=== PATIENT | female | born 1945 | race Caucasian/White ===

== ENCOUNTER 2023-12-27 12:01 | Inpatient (IN) | payer MEDICARE, OTHER ==
[~2023-12-27] VITALS: Ht 165.1 cm; Wt 69.9 kg
[2023-12-27 12:30] VITALS: TEMP 98.9
[2023-12-27 13:23] LABS: BASOPHILS # (AUTO) 0.1 (0.0-0.1); BASOPHILS % 0.6 % (0.0-1.0); EOSINOPHILS # (AUTO) 0.1 (0.0-0.4); EOSINOPHILS % 0.9 % (0.0-6.0); LYMPHOCYTES # (AUTO) 1.4 (1.0-3.2); LYMPHOCYTES % 10.5 % (18.0-39.1); MEAN CORPUSCULAR HGB CONC 31.7 g/dL (31-35); MEAN CORPUSCULAR VOLUME 126.3 fL (81-99); MONOCYTES # (AUTO) 1.6 (0.2-0.8); MONOCYTES % 11.8 % (4.4-11.3); NEUTROPHILS # (AUTO) 10.2 (2.1-6.9); PLATELET COUNT 396 x10e3/uL (140-360); RED CELL DISTRIBUTION WIDTH 15.4 % (11.7-14.4); WHITE BLOOD COUNT 13.59 x10e3/uL (4.8-10.8)
[2023-12-27 13:53] LABS: HEMATOCRIT 20.2 % (34.2-44.1); HEMOGLOBIN 6.4 g/dL (12.0-16.0)
[2023-12-27 14:18] LABS: CLARITY,URINE CLEAR (CLEAR); COLOR,URINE YELLOW (YELLOW); LEUKOCYTE ESTERASE ,URINE NEGATIVE (NEGATIVE); NITRITE,URINE NEGATIVE (NEGATIVE); PH,URINE 6 (5 - 7); PROTEIN,URINE DIPSTICK 1+ (NEGATIVE)
[2023-12-27 14:19] LABS: BILIRUBIN,URINE NEGATIVE (NEGATIVE); GLUCOSE, URINE NEGATIVE (NEGATIVE); KETONES,URINE NEGATIVE (NEGATIVE); URINE UROBILINOGEN 0.2 mg/dL (0.2 - 1)
[2023-12-27 14:22] LABS: ALBUMIN 3.3 g/dL (3.5-5.0); ALBUMIN/GLOBULIN RATIO 0.8 (0.8-2.0); ANION GAP 14.3 mmol/L (8-16); BILIRUBIN,TOTAL 1.2 mg/dL (0.2-1.2); CALCIUM 9.4 mg/dL (8.4-10.2); CREATININE, SERUM 1.19 mg/dL (0.57-1.11); POTASSIUM 4.3 mmol/L (3.5-5.1); TOTAL PROTEIN 7.7 g/dL (6.5-8.1)
[2023-12-27 14:25] LABS: INR 1.28; PARTIAL THROMBOPLASTIN TIME 25.5 seconds (23.8-35.5); PROTHROMBIN TIME 16.6 seconds (11.9-14.5)
[2023-12-27 14:37] LABS: EPITHELIAL CELLS,URINE MANY /LPF; WBC,URINE (MAN) 0-5 /HPF (0-5)
[2023-12-27 14:39] LABS: BACTERIA,URINE MODERATE /HPF; MUCUS,URINE FEW (RARE)
[2023-12-27] MEDS ORDERED: IOPAMIDOL 370 MG/ML 100 ML INFUS..BTL INJ ONE (15:15)
[2023-12-27] MEDS ORDERED: DEXAMETHASONE SOD PHOS INJ 4 MG/ML SDV ONE (15:23)
[2023-12-27] MEDS ORDERED: PROPOFOL IV EMULSION 10 MG/ML 20 ML VIAL ONE (15:23)
[2023-12-27] MEDS ORDERED: LIDOCAINE HCL 2% LOCAL INJ 5 ML SDV VIAL INJ ONE (15:23)
[2023-12-27] MEDS ORDERED: ONDANSETRON HCL INJ 2MG/ML 2ML 2 MG/ML VIAL ONE (15:23)
[2023-12-27] MEDS: SODIUM CHLORIDE 0.9% 1000ML 1,000 ML IV STA (15:37)
[2023-12-27] MEDS: ONDANSETRON HCL INJ 2MG/ML 2ML 2 MG/ML VIAL IV STA (15:52)
[2023-12-27] MEDS: Morphine 2mg Syringe 2 MG/ML SYR IV STA (15:53)
[2023-12-27 16:00] VITALS: PULSE 91; RESP 17
[2023-12-27] MEDS ORDERED: ONDANSETRON HCL INJ 2MG/ML 2ML 2 MG/ML VIAL IV PRN (17:00)
[2023-12-27 18:04] VITALS: BP 98/87; PULSE 92; RESP 21; TEMP 99.2; O2SAT 99
[2023-12-27] MEDS: SODIUM CHLORIDE 0.9% 250ML 250 ML IV ONE (18:36)
[2023-12-27] MEDS: SODIUM CHLORIDE 0.9% 1000ML 1,000 ML IV SCH (18:40)
[2023-12-27 19:50] VITALS: BP 108/60; PULSE 81; RESP 16; TEMP 98.1; O2SAT 100
[2023-12-27 20:00] VITALS: BP 108/60; PULSE 81; RESP 16; TEMP 98.1; O2SAT 100
[2023-12-27] MEDS ORDERED: FAMOTIDINE20 MG PO (20:15)
[2023-12-27] MEDS ORDERED: DOCUSATE SODIU100 MG PO (20:15)
[2023-12-27] MEDS ORDERED: LISINOPRIL5 MG PO (20:15)
[2023-12-27] MEDS ORDERED: LEVOTHYROXINE25 MCG PO (20:15)
[2023-12-27] MEDS ORDERED: OMEPRAZOLE40 MG PO (20:15)
[2023-12-27] MEDS: Morphine 2mg Syringe 2 MG/ML SYR IV PRN (20:41)
[2023-12-28] VITALS (8 sets, daily range): BP systolic 99–132; BP diastolic 51–76; PULSE 67–84; RESP 16–20; TEMP 97.6–98.9; O2SAT 96–99
[2023-12-28 06:14] LABS: ALBUMIN 2.8 g/dL (3.5-5.0); ALBUMIN/GLOBULIN RATIO 0.8 (0.8-2.0); ANION GAP 12.1 mmol/L (8-16); CALCIUM 8.6 mg/dL (8.4-10.2); CREATININE, SERUM 1.01 mg/dL (0.57-1.11); POTASSIUM 4.1 mmol/L (3.5-5.1); TOTAL PROTEIN 6.1 g/dL (6.5-8.1)
[2023-12-28 08:41] LABS: BASOPHILS # (AUTO) 0.1 (0.0-0.1); EOSINOPHILS # (AUTO) 0.2 (0.0-0.4); EOSINOPHILS % 1.8 % (0.0-6.0); HEMATOCRIT 27.8 % (34.2-44.1); HEMOGLOBIN 8.9 g/dL (12.0-16.0); LYMPHOCYTES # (AUTO) 2.3 (1.0-3.2); LYMPHOCYTES % 20.7 % (18.0-39.1); MEAN CORPUSCULAR HEMOGLOBIN 34.2 pg (28-32); MEAN CORPUSCULAR VOLUME 106.9 fL (81-99); MONOCYTES # (AUTO) 1.2 (0.2-0.8); MONOCYTES % 10.5 % (4.4-11.3); NEUTROPHILS # (AUTO) 7.4 (2.1-6.9); NEUTROPHILS % 64.9 % (38.7-80.0); PLATELET COUNT 263 x10e3/uL (140-360); RED CELL DISTRIBUTION WIDTH 24.3 % (11.7-14.4); WHITE BLOOD COUNT 11.31 x10e3/uL (4.8-10.8)
[2023-12-28] MEDS ORDERED: FENTANYL CITRATE/PF 100MCG/2 ML INJ ONE (14:45)
[2023-12-28 21:42] LABS: CLARITY,URINE SL CLOUDY (CLEAR); COLOR,URINE YELLOW (YELLOW); LEUKOCYTE ESTERASE ,URINE TRACE (NEGATIVE); NITRITE,URINE NEGATIVE (NEGATIVE); PH,URINE 6 (5 - 7)
[2023-12-28 21:43] LABS: BILIRUBIN,URINE NEGATIVE (NEGATIVE); GLUCOSE, URINE NEGATIVE (NEGATIVE); KETONES,URINE NEGATIVE (NEGATIVE); PROTEIN,URINE DIPSTICK 2+ (NEGATIVE); URINE UROBILINOGEN 0.2 mg/dL (0.2 - 1)
[2023-12-28 21:45] LABS: BACTERIA,URINE RARE /HPF; EPITHELIAL CELLS,URINE FEW /LPF
[2023-12-29] VITALS (8 sets, daily range): BP systolic 118–137; BP diastolic 61–73; PULSE 54–70; RESP 18–21; TEMP 97.6–98.5; O2SAT 95–100
[2023-12-29] MEDS ORDERED: IOPAMIDOL 610MG/1ML 300 MG/ML VIAL IV ONE (06:40)
[2023-12-29] MEDS ORDERED: PHENAZOPYRIDINE HCL 100 MG TAB PO PRN (08:00)
[2023-12-29 09:08] LABS: BASOPHILS # (AUTO) 0.1 (0.0-0.1); BASOPHILS % 1.1 % (0.0-1.0); EOSINOPHILS # (AUTO) 0.3 (0.0-0.4); EOSINOPHILS % 2.7 % (0.0-6.0); HEMATOCRIT 32.2 % (34.2-44.1); HEMOGLOBIN 10.3 g/dL (12.0-16.0); LYMPHOCYTES # (AUTO) 1.6 (1.0-3.2); LYMPHOCYTES % 13.3 % (18.0-39.1); MEAN CORPUSCULAR HEMOGLOBIN 34.2 pg (28-32); MONOCYTES # (AUTO) 0.5 (0.2-0.8); MONOCYTES % 4.4 % (4.4-11.3); NEUTROPHILS # (AUTO) 9.2 (2.1-6.9); NEUTROPHILS % 76.5 % (38.7-80.0); PLATELET COUNT 275 x10e3/uL (140-360); RED BLOOD COUNT 3.01 x10e6/uL (3.6-5.1); RED CELL DISTRIBUTION WIDTH 23.3 % (11.7-14.4)
[2023-12-29 09:25] LABS: ANION GAP 14.1 mmol/L (8-16); CALCIUM 8.8 mg/dL (8.4-10.2); CREATININE, SERUM 0.87 mg/dL (0.57-1.11); POTASSIUM 4.1 mmol/L (3.5-5.1); URIC ACID 6.8 mg/dL (2.6-8.0)
[2023-12-29] MEDS: SOLIFENACIN SUCCINATE 5 MG TAB PO SCH (09:40)
[2023-12-30] VITALS (8 sets, daily range): BP systolic 124–139; BP diastolic 54–78; PULSE 53–59; RESP 17–21; TEMP 97.6–98.6; O2SAT 97–100
[2023-12-30 07:52] LABS: MAGNESIUM 1.9 MG/DL (1.3-2.1)
[2023-12-30 08:12] LABS: THYROID STIMULATING HORMONE 1.488 uIU/mL (0.350-4.940)
[2023-12-30 10:55] LABS: BASOPHILS # (AUTO) 0.1 (0.0-0.1); EOSINOPHILS % 0.3 % (0.0-6.0); HEMATOCRIT 30.7 % (34.2-44.1); HEMOGLOBIN 9.5 g/dL (12.0-16.0); LYMPHOCYTES # (AUTO) 2.3 (1.0-3.2); LYMPHOCYTES % 24.6 % (18.0-39.1); MEAN CORPUSCULAR HEMOGLOBIN 34.1 pg (28-32); MEAN CORPUSCULAR HGB CONC 30.9 g/dL (31-35); MONOCYTES # (AUTO) 0.8 (0.2-0.8); MONOCYTES % 8.5 % (4.4-11.3); NEUTROPHILS # (AUTO) 6.1 (2.1-6.9); PLATELET COUNT 264 x10e3/uL (140-360); RED BLOOD COUNT 2.79 x10e6/uL (3.6-5.1); RED CELL DISTRIBUTION WIDTH 21.5 % (11.7-14.4); WHITE BLOOD COUNT 9.46 x10e3/uL (4.8-10.8)
[2023-12-30 11:07] LABS: ANION GAP 14.6 mmol/L (8-16); CALCIUM 8.5 mg/dL (8.4-10.2); CREATININE, SERUM 0.79 mg/dL (0.57-1.11); POTASSIUM 4.6 mmol/L (3.5-5.1)
[2023-12-31] VITALS: BP 153/63; PULSE 74; RESP 18; TEMP 98.6; O2SAT 97
[2023-12-31 04:00] VITALS: BP 123/56; PULSE 58; RESP 18; TEMP 98.2; O2SAT 99
[2023-12-31 05:46] LABS: CHOL/HDL RATIO 2.6 (3.0-3.6)
[2023-12-31 08:00] VITALS: BP 138/62; PULSE 54; RESP 20; TEMP 98.4; O2SAT 98
[2023-12-31 12:00] VITALS: BP 127/77; PULSE 57; RESP 22; TEMP 98.1; O2SAT 99
[2023-12-31] MEDS ORDERED: REGADENOSON 0.4 MG/5 ML SYR IV ONE (13:05)
[2023-12-31 16:00] VITALS: BP 142/76; PULSE 65; RESP 20; TEMP 98.4; O2SAT 100
[2023-12-31 20:00] VITALS: BP_SYST 125; BP_SYST 138; BP_DIAS 62; PULSE 54; PULSE 58; RESP 16; RESP 20; TEMP 97.7; TEMP 98.4; O2SAT 100; O2SAT 98
[2024-01-01] VITALS: BP 124/66; PULSE 70; RESP 18; TEMP 97.9; O2SAT 98
[2024-01-01 05:55] VITALS: BP 119/66; PULSE 56; RESP 16; TEMP 98.2; O2SAT 98
[2024-01-01 08:00] VITALS: BP 133/61; PULSE 63; RESP 21; TEMP 98.1; O2SAT 98
[2024-01-01 09:16] LABS: CALCIUM 8.3 mg/dL (8.7-10.3)
[2024-01-01 12:00] VITALS: BP 135/55; PULSE 64; RESP 20; TEMP 98.3; O2SAT 99
[2024-01-01] MEDS ORDERED: VESICARE5 MG PO (14:00)
== END 2024-01-01 15:23 | disposition home or self-care (01) | DRG 660 ==
LOC: ER 12:36 → ERHOLD 16:52 → MED/SURG 18:04
PROVIDERS: ADMIT Internal Medicine; ATTEND Internal Medicine
PROC: 30233N1 Transfusion of Nonautologous Red Blood Cells into Peripheral Vein, Percutaneous Approach (ICD-10-PCS; principal; 2023-12-27)
PROC: 0TC78ZZ Extirpation of Matter from Left Ureter, Via Natural or Artificial Opening Endoscopic (ICD-10-PCS; 2023-12-29)
PROC: BT161ZZ Fluoroscopy of Right Ureter using Low Osmolar Contrast (ICD-10-PCS; 2023-12-29)
PROC: BT171ZZ Fluoroscopy of Left Ureter using Low Osmolar Contrast (ICD-10-PCS; 2023-12-29)
PROC: 0UJH7ZZ Inspection of Vagina and Cul-de-sac, Via Natural or Artificial Opening (ICD-10-PCS; 2023-12-29)
PROC: 0T778DZ Dilation of Left Ureter with Intraluminal Device, Via Natural or Artificial Opening Endoscopic (ICD-10-PCS; 2023-12-29 07:27)
DX: N13.2 Hydronephrosis with renal and ureteral calculous obstruction (principal); I47.29 Other ventricular tachycardia; N13.1 Hydronephrosis with ureteral stricture, not elsewhere classified; N17.9 Acute kidney failure, unspecified; I10 Essential (primary) hypertension; D64.9 Anemia, unspecified; I20.89 Other forms of angina pectoris; N23 Unspecified renal colic; R31.29 Other microscopic hematuria; D25.9 Leiomyoma of uterus, unspecified; R91.1 Solitary pulmonary nodule; D75.839 Thrombocytosis, unspecified; R73.9 Hyperglycemia, unspecified; K80.20 Calculus of gallbladder without cholecystitis without obstruction; E86.0 Dehydration; K59.00 Constipation, unspecified; N81.4 Uterovaginal prolapse, unspecified; N95.2 Postmenopausal atrophic vaginitis; R32 Unspecified urinary incontinence; Z87.440 Personal history of urinary (tract) infections; Z96.0 Presence of urogenital implants; Z82.49 Family history of ischemic heart disease and other diseases of the circulatory system
CPT/HCPCS: 36415; 71046; 74177; 74420; 78452; 80048; 80053; 80061; 81001; 83036; 83735; 83880; 83970; 84443; 84484; 84550; 85025; 85610; 85730; 86850; 86900; 86920; 87086; 88300; 93005; 93017; 93306; 99284; A9502; C1758; C2617; J0696; J1100; J2003; J2270; J2405; J2470; J7030; J7050; P9016; Q9967

== ENCOUNTER 2024-03-12 09:22 | Inpatient (IN) | payer MEDICARE ==
[2024-03-11 15:50] LABS: BASOPHILS # (AUTO) 0.1 (0.0-0.1); EOSINOPHILS # (AUTO) 0.1 (0.0-0.4); EOSINOPHILS % 1.8 % (0.0-6.0); LYMPHOCYTES # (AUTO) 2.3 (1.0-3.2); MEAN CORPUSCULAR HEMOGLOBIN 34.9 pg (28-32); MEAN CORPUSCULAR HGB CONC 30.2 g/dL (31-35); MEAN CORPUSCULAR VOLUME 115.7 fL (81-99); MONOCYTES # (AUTO) 0.8 (0.2-0.8); MONOCYTES % 11.5 % (4.4-11.3); NEUTROPHILS # (AUTO) 3.8 (2.1-6.9); NEUTROPHILS % 51.5 % (38.7-80.0); PLATELET COUNT 290 x10e3/uL (140-360); RED BLOOD COUNT 1.72 x10e6/uL (3.6-5.1); RED CELL DISTRIBUTION WIDTH 24.1 % (11.7-14.4); WHITE BLOOD COUNT 7.32 x10e3/uL (4.8-10.8)
[2024-03-11 16:01] LABS: HEMATOCRIT 19.9 % (34.2-44.1)
[2024-03-11 16:10] LABS: ANION GAP 16.3 mmol/L (8-16); CALCIUM 9.4 mg/dL (8.4-10.2); CREATININE, SERUM 0.98 mg/dL (0.57-1.11); POTASSIUM 4.3 mmol/L (3.5-5.1)
[~2024-03-12] VITALS: Ht 154.9 cm; Wt 67.6 kg
[~2024-03-12 09:22] MED LIST: DOCUSATE SODIU100 MG PO; FAMOTIDINE20 MG PO; LEVOTHYROXINE25 MCG PO; LISINOPRIL5 MG PO; OMEPRAZOLE40 MG PO; VESICARE5 MG PO
[2024-03-12] MEDS: LACTATED RINGER'S 1,000 ML ONE (09:53)
[2024-03-12] MEDS: GENTAMICIN 80MG/NS 100 ML 200 ML IV ONE (09:54)
[2024-03-12] MEDS: CEFTRIAXONE 1 GM VIAL ONE (09:54)
[2024-03-12 10:05] LABS: BASOPHILS % 0.7 % (0.0-1.0); EOSINOPHILS # (AUTO) 0.1 (0.0-0.4); LYMPHOCYTES # (AUTO) 1.6 (1.0-3.2); LYMPHOCYTES % 28.6 % (18.0-39.1); MEAN CORPUSCULAR HEMOGLOBIN 35.5 pg (28-32); MEAN CORPUSCULAR HGB CONC 30.5 g/dL (31-35); MEAN CORPUSCULAR VOLUME 116.4 fL (81-99); MONOCYTES # (AUTO) 0.8 (0.2-0.8); MONOCYTES % 14.8 % (4.4-11.3); NEUTROPHILS # (AUTO) 2.9 (2.1-6.9); NEUTROPHILS % 52.1 % (38.7-80.0); PLATELET COUNT 249 x10e3/uL (140-360); RED BLOOD COUNT 1.52 x10e6/uL (3.6-5.1); RED CELL DISTRIBUTION WIDTH 23.9 % (11.7-14.4)
[2024-03-12 10:11] LABS: HEMATOCRIT 17.7 % (34.2-44.1)
[2024-03-12 10:15] LABS: HEMOGLOBIN 5.4 g/dL (12.0-16.0)
[2024-03-12] MEDS: SODIUM CHLORIDE 0.9% 500ML 500 ML ONE (11:44)
[2024-03-12] MEDS ORDERED: SEVOFLURANE INHAL SOLN 250 ML PEN BTL ONE (13:30)
[2024-03-12] MEDS ORDERED: ACETAMINOPHEN 1000 MG/100 ML 0 ML IV ONE (13:30)
[2024-03-12] MEDS ORDERED: PROPOFOL IV EMULSION 10 MG/ML 20 ML VIAL ONE (13:30)
[2024-03-12] MEDS ORDERED: FENTANYL CITRATE/PF 100MCG/2 ML INJ ONE (13:30)
[2024-03-12] MEDS ORDERED: DEXAMETHASONE SOD PHOS INJ 4 MG/ML SDV ONE (13:30)
[2024-03-12] MEDS ORDERED: LIDOCAINE HCL 2% LOCAL INJ 5 ML SDV VIAL INJ ONE (13:30)
[2024-03-12] MEDS ORDERED: ONDANSETRON HCL INJ 2MG/ML 2ML 2 MG/ML VIAL ONE (13:32)
[2024-03-12] MEDS ORDERED: ACETAMINOPHEN 1000 MG/100 ML IV PRN (14:45)
[2024-03-12] MEDS ORDERED: ACETAMINOPHEN/CODEINE 300MG - 30MG TAB PO PRN (14:45)
[2024-03-12] MEDS ORDERED: PHENAZOPYRIDINE HCL 100 MG TAB PO PRN (14:45)
[2024-03-12] MEDS ORDERED: DIPHENHYDRAMINE HCL 25 MG CAP PO PRN (14:45)
[2024-03-12 15:11] LABS: BASOPHILS # (AUTO) 0.1 (0.0-0.1); BASOPHILS % 0.8 % (0.0-1.0); EOSINOPHILS # (AUTO) 0.1 (0.0-0.4); EOSINOPHILS % 1.6 % (0.0-6.0); HEMOGLOBIN 8.4 g/dL (12.0-16.0); LYMPHOCYTES # (AUTO) 2.6 (1.0-3.2); LYMPHOCYTES % 31.7 % (18.0-39.1); MEAN CORPUSCULAR HEMOGLOBIN 32.3 pg (28-32); MEAN CORPUSCULAR HGB CONC 31.1 g/dL (31-35); MEAN CORPUSCULAR VOLUME 103.8 fL (81-99); MONOCYTES # (AUTO) 0.8 (0.2-0.8); MONOCYTES % 9.7 % (4.4-11.3); NEUTROPHILS # (AUTO) 4.5 (2.1-6.9); NEUTROPHILS % 54.6 % (38.7-80.0); PLATELET COUNT 185 x10e3/uL (140-360); RED CELL DISTRIBUTION WIDTH 23.7 % (11.7-14.4); WHITE BLOOD COUNT 8.26 x10e3/uL (4.8-10.8)
[2024-03-12 15:40] LABS: ANION GAP 16.1 mmol/L (8-16); CALCIUM 8.8 mg/dL (8.4-10.2); CREATININE, SERUM 0.8 mg/dL (0.57-1.11); POTASSIUM 4.1 mmol/L (3.5-5.1)
[2024-03-12 16:21] VITALS: BP 105/68; PULSE 65; RESP 20; TEMP 97.7; O2SAT 100
[2024-03-12 16:30] VITALS: PULSE 63; RESP 18; O2SAT 98
[2024-03-12 16:32] VITALS: BP 105/68; PULSE 65; RESP 20; TEMP 97.7; O2SAT 100
[2024-03-12] MEDS ORDERED: SENNA-S TABLET PO SCH (17:00)
[2024-03-12] MEDS: SODIUM CHLORIDE 0.9% 1000ML 1,000 ML IV SCH (18:31)
[2024-03-12 20:00] VITALS: BP 132/75; PULSE 104; RESP 18; TEMP 101.5; O2SAT 99
[2024-03-12 20:35] VITALS: PULSE 91; RESP 18; O2SAT 98
[2024-03-12] MEDS: SENNA-S TABLET PO SCH (21:08)
[2024-03-13] VITALS (9 sets, daily range): BP systolic 108–120; BP diastolic 52–67; PULSE 87–103; RESP 18–20; TEMP 98.7–100.5; O2SAT 93–100
[2024-03-13 05:26] LABS: BASOPHILS # (AUTO) 0.1 (0.0-0.1); BASOPHILS % 0.8 % (0.0-1.0); EOSINOPHILS % 0.1 % (0.0-6.0); HEMATOCRIT 22.2 % (34.2-44.1); LYMPHOCYTES # (AUTO) 0.4 (1.0-3.2); LYMPHOCYTES % 2.2 % (18.0-39.1); MEAN CORPUSCULAR HEMOGLOBIN 32.9 pg (28-32); MEAN CORPUSCULAR HGB CONC 32.9 g/dL (31-35); MONOCYTES % 5.8 % (4.4-11.3); NEUTROPHILS # (AUTO) 15.3 (2.1-6.9); NEUTROPHILS % 88.4 % (38.7-80.0); PLATELET COUNT 199 x10e3/uL (140-360); RED BLOOD COUNT 2.22 x10e6/uL (3.6-5.1); RED CELL DISTRIBUTION WIDTH 24.2 % (11.7-14.4); WHITE BLOOD COUNT 17.33 x10e3/uL (4.8-10.8)
[2024-03-13 05:36] LABS: HEMOGLOBIN 7.3 g/dL (12.0-16.0)
[2024-03-13 05:50] LABS: ANION GAP 14.2 mmol/L (8-16); CALCIUM 8.5 mg/dL (8.4-10.2); CREATININE, SERUM 0.88 mg/dL (0.57-1.11); POTASSIUM 4.2 mmol/L (3.5-5.1)
[2024-03-13 10:47] LABS: ANISOCYTOSIS MODERATE; PLATELET ESTIMATE ADEQUATE; PLATELET MORPHOLOGY COMMENT FEW LARGE; RBC MORPHOLOGY COMMENT ABNORMAL
[2024-03-13 14:41] LABS: FOLATE 5.6 ng/mL (7.0-15.4)
[2024-03-13 15:05] LABS: FERRITIN 1859.16 ng/mL (4.63-204.00)
[2024-03-14] VITALS (12 sets, daily range): BP systolic 103–135; BP diastolic 53–64; PULSE 78–96; RESP 16–20; TEMP 98.2–100.1; O2SAT 95–100
[2024-03-14 05:12] LABS: BASOPHILS % 0.7 % (0.0-1.0); EOSINOPHILS % 0.2 % (0.0-6.0); HEMATOCRIT 21.8 % (34.2-44.1); LYMPHOCYTES # (AUTO) 1.2 (1.0-3.2); LYMPHOCYTES % 20.5 % (18.0-39.1); MEAN CORPUSCULAR HEMOGLOBIN 32.4 pg (28-32); MEAN CORPUSCULAR HGB CONC 30.7 g/dL (31-35); MONOCYTES # (AUTO) 0.4 (0.2-0.8); MONOCYTES % 7.1 % (4.4-11.3); NEUTROPHILS % 69.6 % (38.7-80.0); RED BLOOD COUNT 2.07 x10e6/uL (3.6-5.1); RED CELL DISTRIBUTION WIDTH 23.3 % (11.7-14.4)
[2024-03-14 05:26] LABS: HEMOGLOBIN 6.7 g/dL (12.0-16.0)
[2024-03-14 05:27] LABS: MEAN CORPUSCULAR VOLUME 105.3 fL (81-99); PLATELET COUNT 130 x10e3/uL (140-360)
[2024-03-14 05:39] LABS: ANION GAP 11.8 mmol/L (8-16); CALCIUM 7.9 mg/dL (8.4-10.2); CREATININE, SERUM 0.78 mg/dL (0.57-1.11); POTASSIUM 3.8 mmol/L (3.5-5.1)
[2024-03-14] MEDS ORDERED: FUROSEMIDE 20 MG TAB PO PRN (08:45)
[2024-03-14] MEDS: SODIUM CHLORIDE 0.9% 250ML 250 ML IV ONE (09:37)
[2024-03-14] MEDS: FUROSEMIDE INJ 10 MG/ML 4 ML VIAL IV PRN (14:41)
[2024-03-14] MEDS ORDERED: IRON SUCROSE 100 MG in SODIUM CHLORIDE 0.9% 100 ML IV SCH (15:00)
[2024-03-14] MEDS: CYANOCOBALAMIN INJ 1,000 MCG/ML VIAL IM ONE (16:35)
[2024-03-14] MEDS: FOLIC ACID 1 MG TAB PO ONE (16:35)
[2024-03-14] MEDS: IRON SUCROSE 100 MG in SODIUM CHLORIDE 0.9% 100 ML IV SCH (20:59)
[2024-03-15] VITALS (10 sets, daily range): BP systolic 108–126; BP diastolic 63–71; PULSE 65–87; RESP 16–21; TEMP 97.2–98.5; O2SAT 95–100
[2024-03-15 05:57] LABS: BASOPHILS % 0.6 % (0.0-1.0); EOSINOPHILS # (AUTO) 0.1 (0.0-0.4); EOSINOPHILS % 2.2 % (0.0-6.0); HEMATOCRIT 33.7 % (34.2-44.1); HEMOGLOBIN 10.9 g/dL (12.0-16.0); LYMPHOCYTES # (AUTO) 1.5 (1.0-3.2); LYMPHOCYTES % 23.5 % (18.0-39.1); MEAN CORPUSCULAR HEMOGLOBIN 31.3 pg (28-32); MEAN CORPUSCULAR HGB CONC 32.3 g/dL (31-35); MEAN CORPUSCULAR VOLUME 96.8 fL (81-99); MONOCYTES # (AUTO) 0.5 (0.2-0.8); MONOCYTES % 8.1 % (4.4-11.3); NEUTROPHILS % 64.2 % (38.7-80.0); PLATELET COUNT 125 x10e3/uL (140-360); RED BLOOD COUNT 3.48 x10e6/uL (3.6-5.1); RED CELL DISTRIBUTION WIDTH 20.5 % (11.7-14.4); WHITE BLOOD COUNT 6.26 x10e3/uL (4.8-10.8)
[2024-03-15 06:10] LABS: INR 1.19; PROTHROMBIN TIME 15.8 seconds (11.9-14.5)
[2024-03-15 06:24] LABS: ALBUMIN 2.7 g/dL (3.5-5.0); ALBUMIN/GLOBULIN RATIO 0.7 (0.8-2.0); ANION GAP 14.5 mmol/L (8-16); CALCIUM 8.3 mg/dL (8.4-10.2); CREATININE, SERUM 0.91 mg/dL (0.57-1.11); POTASSIUM 3.5 mmol/L (3.5-5.1); TOTAL PROTEIN 6.6 g/dL (6.5-8.1)
[2024-03-15] MEDS ORDERED: FOLIC ACID 1 MG TAB PO SCH (09:00)
[2024-03-15] MEDS ORDERED: CYANOCOBALAMIN 1,000 MCG TAB PO SCH (09:00)
[2024-03-15] MEDS: CYANOCOBALAMIN INJ 1,000 MCG/ML VIAL IM SCH (10:26)
[2024-03-15] MEDS: FOLIC ACID 1 MG TAB PO SCH (10:26)
[2024-03-16] VITALS (7 sets, daily range): BP systolic 117–139; BP diastolic 66–75; PULSE 55–80; RESP 16–20; TEMP 97.2–98; O2SAT 97–99
[2024-03-16 06:03] LABS: BASOPHILS % 0.7 % (0.0-1.0); EOSINOPHILS # (AUTO) 0.2 (0.0-0.4); EOSINOPHILS % 3.2 % (0.0-6.0); HEMATOCRIT 32.1 % (34.2-44.1); HEMOGLOBIN 10.7 g/dL (12.0-16.0); LYMPHOCYTES # (AUTO) 1.5 (1.0-3.2); LYMPHOCYTES % 25.7 % (18.0-39.1); MEAN CORPUSCULAR HEMOGLOBIN 31.4 pg (28-32); MEAN CORPUSCULAR HGB CONC 33.3 g/dL (31-35); MEAN CORPUSCULAR VOLUME 94.1 fL (81-99); MONOCYTES # (AUTO) 0.4 (0.2-0.8); MONOCYTES % 6.3 % (4.4-11.3); NEUTROPHILS # (AUTO) 3.5 (2.1-6.9); PLATELET COUNT 117 x10e3/uL (140-360); RED BLOOD COUNT 3.41 x10e6/uL (3.6-5.1); RED CELL DISTRIBUTION WIDTH 20.4 % (11.7-14.4); WHITE BLOOD COUNT 5.67 x10e3/uL (4.8-10.8)
[2024-03-16 06:30] LABS: ANION GAP 13.6 mmol/L (8-16); CALCIUM 8.5 mg/dL (8.4-10.2); CREATININE, SERUM 0.74 mg/dL (0.57-1.11); POTASSIUM 3.6 mmol/L (3.5-5.1)
[2024-03-16] MEDS ORDERED: SENOKOT-S TABL1 EACH PO (13:16)
[2024-03-17 07:32] LABS: HEPATITIS A ANTIBODY IGM (P) Negative; HEPATITIS B CORE IGM (P) Negative; HEPATITIS B SURFACE AG (P) Negative
[2024-03-17 07:33] LABS: HEPATITIS C ANTIBODY Non Reactive
== END 2024-03-16 15:39 | disposition home or self-care (01) | DRG 694 ==
LOC: OR 09:22 → PACU V 14:43 → MED/SURG 16:11
PROVIDERS: ADMIT Internal Medicine; ATTEND Internal Medicine
PROC: 0TC08ZZ Extirpation of Matter from Right Kidney, Via Natural or Artificial Opening Endoscopic (ICD-10-PCS; 2024-03-12)
PROC: BT141ZZ Fluoroscopy of Kidneys, Ureters and Bladder using Low Osmolar Contrast (ICD-10-PCS; 2024-03-12)
PROC: 0UJH7ZZ Inspection of Vagina and Cul-de-sac, Via Natural or Artificial Opening (ICD-10-PCS; 2024-03-12)
PROC: 30233N1 Transfusion of Nonautologous Red Blood Cells into Peripheral Vein, Percutaneous Approach (ICD-10-PCS; 2024-03-12)
PROC: 0TP98DZ Removal of Intraluminal Device from Ureter, Via Natural or Artificial Opening Endoscopic (ICD-10-PCS; principal; 2024-03-12 14:05)
PROC: 0TC68ZZ Extirpation of Matter from Right Ureter, Via Natural or Artificial Opening Endoscopic (ICD-10-PCS; 2024-03-12 14:05)
DX: N13.2 Hydronephrosis with renal and ureteral calculous obstruction (principal); D62 Acute posthemorrhagic anemia; D69.6 Thrombocytopenia, unspecified; I10 Essential (primary) hypertension; K21.9 Gastro-esophageal reflux disease without esophagitis; D72.829 Elevated white blood cell count, unspecified; N81.2 Incomplete uterovaginal prolapse; N36.41 Hypermobility of urethra; D25.9 Leiomyoma of uterus, unspecified; R91.1 Solitary pulmonary nodule
CPT/HCPCS: 36415; 71046; 74018; 74420; 76700; 80048; 80053; 82607; 82728; 82746; 83010; 83540; 83615; 83735; 84466; 84550; 85025; 85045; 85379; 85384; 85610; 86850; 86900; 86920; 87086; 88300; 93005; 93970; 94799; C1758; C1769; J0696; J1100; J1580; J1756; J1940; J2003; J2405; J2470; J3420; J7030; J7040; J7050; P9016

== ENCOUNTER 2024-06-07 11:08 | Inpatient (IN) | payer MEDICARE ==
[2024-06-07] VITALS (9 sets, daily range): BP systolic 101–121; BP diastolic 55–84; PULSE 65–87; RESP 16–19; TEMP 97.4–98.2; O2SAT 99–100
[~2024-06-07] VITALS: Ht 165.1 cm; Wt 69.9 kg
[~2024-06-07 11:08] MED LIST changes: +SENOKOT-S TABL1 EACH PO
[2024-06-07 12:50] LABS: BASOPHILS # (AUTO) 0.1 (0.0-0.1); BASOPHILS % 0.9 % (0.0-1.0); EOSINOPHILS # (AUTO) 0.1 (0.0-0.4); EOSINOPHILS % 2.4 % (0.0-6.0); LYMPHOCYTES # (AUTO) 1.5 (1.0-3.2); LYMPHOCYTES % 26.4 % (18.0-39.1); MEAN CORPUSCULAR HEMOGLOBIN 35.8 pg (28-32); MEAN CORPUSCULAR HGB CONC 31.6 g/dL (31-35); MEAN CORPUSCULAR VOLUME 113.3 fL (81-99); MONOCYTES # (AUTO) 0.6 (0.2-0.8); MONOCYTES % 10.9 % (4.4-11.3); NEUTROPHILS # (AUTO) 3.2 (2.1-6.9); NEUTROPHILS % 58.3 % (38.7-80.0); PLATELET COUNT 166 x10e3/uL (140-360); RED BLOOD COUNT 1.65 x10e6/uL (3.6-5.1); WHITE BLOOD COUNT 5.52 x10e3/uL (4.8-10.8)
[2024-06-07 13:01] LABS: HEMATOCRIT 18.7 % (34.2-44.1); HEMOGLOBIN 5.9 g/dL (12.0-16.0)
[2024-06-07 13:02] LABS: ALBUMIN 3.6 g/dL (3.5-5.0); ALBUMIN/GLOBULIN RATIO 0.9 (0.8-2.0); ANION GAP 16.7 mmol/L (8-16); CALCIUM 8.9 mg/dL (8.4-10.2); CREATININE, SERUM 0.81 mg/dL (0.57-1.11); POTASSIUM 3.7 mmol/L (3.5-5.1); TOTAL PROTEIN 7.5 g/dL (6.5-8.1)
[2024-06-07 15:14] LABS: ANISOCYTOSIS SLIGHT; HYPOCHROMASIA SLIGHT; PLATELET ESTIMATE ADEQUATE; PLATELET MORPHOLOGY COMMENT NORMAL; POIKILOCYTOSIS SLIGHT
[2024-06-07 15:15] LABS: CRENATED RBC SLIGHT; RBC MORPHOLOGY COMMENT ABNORMAL
[2024-06-07] MEDS ORDERED: PNEUMOCOCCAL VACCINE POLYVALENT 23 MCG/0.5 ML VIAL IM SCH (15:20)
[2024-06-07] MEDS: SODIUM CHLORIDE 0.9% 250ML 250 ML IV ONE (16:37)
[2024-06-08] VITALS (7 sets, daily range): BP systolic 98–121; BP diastolic 46–73; PULSE 61–73; RESP 17–20; TEMP 97–98.4; O2SAT 98–100
[2024-06-08 04:34] LABS: FERRITIN 1489.8 ng/mL (4.63-204.00)
[2024-06-08 05:37] LABS: BASOPHILS % 0.7 % (0.0-1.0); EOSINOPHILS # (AUTO) 0.2 (0.0-0.4); EOSINOPHILS % 3.5 % (0.0-6.0); HEMATOCRIT 24.1 % (34.2-44.1); HEMOGLOBIN 8.1 g/dL (12.0-16.0); LYMPHOCYTES % 34.3 % (18.0-39.1); MEAN CORPUSCULAR HEMOGLOBIN 32.7 pg (28-32); MEAN CORPUSCULAR HGB CONC 33.6 g/dL (31-35); MEAN CORPUSCULAR VOLUME 97.2 fL (81-99); MONOCYTES # (AUTO) 0.6 (0.2-0.8); MONOCYTES % 11.2 % (4.4-11.3); NEUTROPHILS # (AUTO) 2.9 (2.1-6.9); NEUTROPHILS % 49.8 % (38.7-80.0); PLATELET COUNT 157 x10e3/uL (140-360); RED BLOOD COUNT 2.48 x10e6/uL (3.6-5.1); RED CELL DISTRIBUTION WIDTH 26.5 % (11.7-14.4); WHITE BLOOD COUNT 5.72 x10e3/uL (4.8-10.8)
[2024-06-08 06:04] LABS: CALCIUM 8.3 mg/dL (8.4-10.2); CREATININE, SERUM 0.77 mg/dL (0.57-1.11)
[2024-06-08] MEDS: LEVOTHYROXINE SODIUM 25 MCG TABLET PO SCH (06:35)
[2024-06-08] MEDS: LISINOPRIL 2.5 MG TAB PO SCH (09:00)
[2024-06-08] MEDS: SODIUM CHLORIDE 0.9% 250ML 250 ML IV ONE (09:01)
[2024-06-08] MEDS: DOCUSATE SODIUM 100 MG CAP PO SCH (09:21)
[2024-06-09 04:00] VITALS: BP 126/62; PULSE 61; RESP 18; TEMP 97.8; O2SAT 100
[2024-06-09 05:40] LABS: BASOPHILS % 0.8 % (0.0-1.0); EOSINOPHILS # (AUTO) 0.2 (0.0-0.4); HEMATOCRIT 25.3 % (34.2-44.1); HEMOGLOBIN 8.4 g/dL (12.0-16.0); LYMPHOCYTES # (AUTO) 2.2 (1.0-3.2); LYMPHOCYTES % 41.6 % (18.0-39.1); MEAN CORPUSCULAR HEMOGLOBIN 32.7 pg (28-32); MEAN CORPUSCULAR HGB CONC 33.2 g/dL (31-35); MEAN CORPUSCULAR VOLUME 98.4 fL (81-99); MONOCYTES # (AUTO) 0.6 (0.2-0.8); MONOCYTES % 10.9 % (4.4-11.3); NEUTROPHILS # (AUTO) 2.2 (2.1-6.9); NEUTROPHILS % 42.1 % (38.7-80.0); PLATELET COUNT 143 x10e3/uL (140-360); RED BLOOD COUNT 2.57 x10e6/uL (3.6-5.1); RED CELL DISTRIBUTION WIDTH 26.5 % (11.7-14.4); WHITE BLOOD COUNT 5.31 x10e3/uL (4.8-10.8)
[2024-06-09 09:29] VITALS: BP 115/65; PULSE 62; RESP 17; TEMP 97.8; O2SAT 98
[2024-06-09 09:30] VITALS: BP 115/65; PULSE 62; RESP 17; TEMP 97.8; O2SAT 98
[2024-06-09 12:46] VITALS: BP 132/52; PULSE 58; RESP 17; TEMP 97.8; O2SAT 100
[2024-06-09 14:00] VITALS: BP 118/66; PULSE 76; RESP 17; TEMP 98; O2SAT 100
== END 2024-06-09 17:35 | disposition home or self-care (01) | DRG 811 ==
LOC: ER 11:50 → ERHOLD 13:14 → MED/SURG2 14:14
PROVIDERS: ADMIT Internal Medicine; ATTEND Internal Medicine
PROC: 30233N1 Transfusion of Nonautologous Red Blood Cells into Peripheral Vein, Percutaneous Approach (ICD-10-PCS; principal; 2024-06-07)
DX: D62 Acute posthemorrhagic anemia (principal); K57.91 Diverticulosis of intestine, part unspecified, without perforation or abscess with bleeding; I10 Essential (primary) hypertension; E03.9 Hypothyroidism, unspecified; K21.9 Gastro-esophageal reflux disease without esophagitis; R07.89 Other chest pain; M19.90 Unspecified osteoarthritis, unspecified site; R53.83 Other fatigue; Z79.890 Hormone replacement therapy
CPT/HCPCS: 36415; 80048; 80053; 82607; 82728; 82746; 83540; 84466; 84484; 85025; 85045; 86850; 86900; 86920; 93005; 94799; 99284; J2470; J7050; P9016